=== PATIENT | male | born 1985 | race Caucasian/White ===

== ENCOUNTER 2019-06-02 16:51 | Emergency (ER) | payer MEDICAID ==
[~2019-06-02] VITALS: Ht 185.4 cm; Wt 77.1 kg
[2019-06-02 16:51] VITALS: BP 112/75
--- NOTE | 2019-06-02 17:48 | NUR ---
Patient discharged to home in stable condition. Written and verbal after care instructions given. Patient verbalizes understanding of instruction.
== END 2019-06-02 17:47 | disposition home or self-care (01) ==
LOC: ER 16:54
DX: H65.91 Unspecified nonsuppurative otitis media, right ear (principal)